=== PATIENT | male | born 1990 | race Caucasian/White ===

== ENCOUNTER 2019-03-28 22:59 | Emergency (ER) | payer OTHER ==
[2019-03-28 23:08] VITALS: BP 123/65; PULSE 57; TEMP 97.9; BMI 25.8
--- NOTE | 2019-03-28 23:49 | PDOC ---
Documentation entered by Ryan Mcnulty SCRIBE, acting as scribe for Ofelia Brody MD. Ofelia Brody MD: This documentation has been prepared by the [place] thomas Aiswarya, SCRIBE, under my direction and personally reviewed by me in its entirety. I confirm that the documentation accurately reflects all work, treatment, procedures, and medical decision making performed by me. History of Present Illness - General Chief Complaint: Injury Stated Complaint: TRIP AND FALL Time Seen by Provider: 03/28/19 23:06 History Source: Patient Exam Limitations: No Limitations - History of Present Illness Initial Comments: 03/28/19 23:38 Assessment and plan: This is a 28-year-old male who comes in status post fell onto his face on to concrete. Patient had a large amount of alcohol to drink prior to falling. Patient is positive alcohol on his breath. Patient tetanus is up-to-date. Patient comes in complaining of lacerations to his bridge of his nose and upper lip area patient also complaining of a bloody nose. Patient denies loss of consciousness, headache, nausea, numbness or tingling of his extremities or any neurological complaints Procedure note laceration repair Laceration #1 nasal laceration Laceration was anesthetized 1% lidocaine no epinephrine and cleaned with normal saline Laceration was closed with a total of 3 sutures of 5-0 Ethilon patient tolerated well Bacitracin and sterile dressing were applied patient tolerated well Laceration just above upper lip laceration was anesthetized with 1% lidocaine no epinephrine and cleaned with normal saline Laceration was closed with a total of 2 sutures of 5-0 Ethilon Bacitracin was placed patient tolerated well Patient discharged home with family and family was given head injury discharge instructions and will check on patient tonight during the night to make sure that he has a normal mental status. 03/28/19 23:45 The patient is a 28 year old male, with no significant PMH, who presents to the emergency department with a nose injury that occurred today. The patient states he consumed large amounts of alcohol today when he slipped on a stairway railing and hit his face on the concrete floor. He reports bleeding and pain to the bridge of the nose. The patient denies any numbness or tingling. Denies any altered mental status or LOC. Deny any head trauma or any other injuries PAST MEDICAL HISTORY: no significant history PAST SURGICAL HISTORY: no significant history FAMILY HISTORY: no pertinent history SOCIAL HISTORY: Pt lives with family and is employed. MEDICATIONS: reviewed ALLERGIES: As per nursing notes Adult ROS General: No fevers or chills, no weakness, no weight loss HEENT: No change in vision. No sore throat,. No ear pain CardioVascular: No chest pain or shortness of breath Respiratory:No cough, or wheezing. Gastrointestinal: no nausea, vomiting, diarrhea or constipation, No rectal bleeding Genitourinary: No dysuria, hematuria, or frequency Musculoskeletal: No joint or muscle pain or swelling Neurologic: No headache, vertigo, dizziness or loss of consciousness Psychiatric: nor depression Skin: +Laceration to the bridge of the nose. Endocrine: no increased thirst or abnormal weight change Allergic: no skin or latex allergy All other systems reviewed and normal PE GENERAL: The patient is awake, alert, and fully oriented, in no acute distress. HEAD: small amount of blood coming from the nose. 1 laceration to the bridge of the nose with swelling, ecchymosis and deformity. cm to the area between the upper lip and nose laceration with associated abrasion and loss of skin. No loose teeth or jaw and cervical spine tenderness. No nasal septal hematoma EYES: Pupils equal, round and reactive to light, extraocular movements intact, sclera anicteric, conjunctiva clear. EXTREMITIES: Normal range of motion, no edema. NEUROLOGICAL: Normal speech, normal gait. PSYCH: Normal mood, normal affect. SKIN: + Several abrasions and contusions of the forehead. Past History - Past Medical History Allergies/Adverse Reactions: Allergies Allergy/AdvReac Type Severity Reaction Status Date / Time No Known Drug Allergies Allergy Verified 03/28/19 23:08 lactose AdvReac Verified 03/28/19 23:08 Home Medications: Ambulatory Orders NK [No Known Home Medication] 03/28/19 *Physical Exam - Vital Signs Last Vital Signs Temp Pulse Resp BP Pulse Ox 97.9 F 57 L 16 123/65 99 03/28/19 23:03 03/28/19 23:03 03/28/19 23:03 03/28/19 23:03 03/28/19 23:03 *DC/Admit/Observation/Transfer Diagnosis at time of Disposition: Fall Qualifiers: Encounter type: initial encounter Qualified Code(s): W19.XXXA - Unspecified fall, initial encounter Nasal bone fracture Qualifiers: Encounter type: initial encounter Fracture type: closed Qualified Code(s): S02.2XXA - Fracture of nasal bones, initial encounter for closed fracture Nasal laceration Qualifiers: Encounter type: initial encounter Qualified Code(s): S01.21XA - Laceration without foreign body of nose, initial encounter Forehead abrasion Qualifiers: Encounter type: initial encounter Qualified Code(s): S00.81XA - Abrasion of other part of head, initial encounter Forehead contusion Qualifiers: Encounter type: initial encounter Qualified Code(s): S00.83XA - Contusion of other part of head, initial encounter Facial laceration Qualifiers: Encounter type: initial encounter Qualified Code(s): S01.81XA - Laceration without foreign body of other part of head, initial encounter - Discharge Dispostion Disposition: HOME Condition at time of disposition: Stable Decision to Admit order: No - Referrals - Patient Instructions Printed Discharge Instructions: DI for Laceration Repair -- Simple Additional Instructions: Tylenol or Motrin as needed for pain. Clean the lacerations once a day with some peroxide and reapply bacitracin. Suture removal in one week For the pain take Tylenol 1000 mg as often this 3-4 times a day if needed. Someone to check on you once tonight during the night. You should be arousable to their normal level of arousability for that time of the night. If you have been vomiting, had a seizure, or you are unable to be aroused or there is a change in your mental status call 911 go back to the nearest emergency department. Take Tylenol as needed for pain. Followup with your primary care doctor - Post Discharge Activity
== END 2019-03-28 23:48 | disposition home or self-care (01) ==
LOC: FER 22:59
PROC: 0CQ0XZZ Repair Upper Lip, External Approach (ICD-10-PCS; principal; 2019-03-28)
DX: S01.511A Laceration without foreign body of lip, initial encounter (principal); S01.21XA Laceration without foreign body of nose, initial encounter; S02.2XXA Fracture of nasal bones, initial encounter for closed fracture; W18.39XA Other fall on same level, initial encounter; Y93.89 Activity, other specified; Y92.89 Other specified places as the place of occurrence of the external cause
CPT/HCPCS: 99281-25